=== PATIENT | female | born 1985 | race Caucasian/White ===

== ENCOUNTER 2019-11-27 13:39 | Emergency (ER) | payer SELFPAY ==
[2019-11-27 13:49] VITALS: BP 144/100; PULSE 101; RESP 18; TEMP 36.8; O2SAT 99; BMI 29.2
--- NOTE | 2019-11-27 14:03 | ED_ITS ---
HPI - Female Genitourinary General: Chief complaint: Urogenital-Female Stated complaint: THINKS UTI OR KIDNEY INFECTION Time Seen by Provider: 11/27/19 13:43 Source: patient Mode of arrival: ambulatory Limitations: no limitations History of Present Illness: MD elicited complaint: UTI Severity scale (1-10): 4 Quality of pain: cramping Consistency: intermittent Review of Systems General: Reports: 10 or more systems reviewed and unremarkable except in HPI and below Const: Denies: fever : Reports: flank pain and painful urination PFS ED PFSH: Social History Smoking and tobacco status: current every day smoker Physical Exam Const: COMMON NORMALS: no apparent distress, oriented x3, no limitations and alert GENERAL APPEARANCE: cooperative and comfortable ORIENTATI ON/CONSCIOUSNESS: Yes awake, Yes oriented to person, Yes oriented to place and Yes oriented to time HENMT: COMMON NORMALS: normocephalic, head/scalp atraumatic, external ears normal, EAC's normal, TM's normal bilaterally and external nose normal HEAD & SCALP: normal to inspection, normocephalic and atraumatic FACE & SINUS: normal facial exam, sinuses nontender and face symmetric NOSE: external nose normal, nares normal and no nasal discharge EXTERNAL EAR: Yes external ears normal EXTERNAL AUDITORY CANAL: EAC's normal TYMPANIC MEMBRANE: TM's normal bilaterally MOUTH: oral and palatal mucosa normal, lip normal and tongue normal THROAT: posterior oropharynx normal, tonsils normal and uvula midline Eye: COMMON NORMALS: PERRL, EOMs intact bilaterally and conjunctivae normal GENERAL EYE: normal appearance of both eyes and normal light reflex EYELID: eyelids normal CONJUNCTIVA: Yes conjunctivae normal PUPIL: Yes PERRL EOM: Yes EOM abnormal DIRECT OPHTHALMOSCOPY: Yes normal light reflex Neck/C-Spine: COMMON NORMALS: full ROM, no lymphadenopathy, supple, no meningeal signs, no JVD and thyroid normal GENERAL: Yes normal visual inspection THYROID: thyroid normal CERVICAL SPINE: Yes cervical ROM normal and Yes normal cervical lordosis Lymph: LYMPHATIC: no lymphadenopathy noted Chest: COMMONS NORMALS: inspection of chest normal and palpation of chest normal Resp: COMMON NORMALS: normal respiratory effort, no retractions and clear to auscultation bilaterally AUSCULTATION: clear to auscultation bilaterally Cardio: COMMON NORMALS: no JVD, regular rate, regular rhythm, S1 normal heart sound, S2 normal heart sound, no gallops, no clicks, no murmurs, no rub and peripheral pulses 2+ throughout RATE: regular rate RHYTHM: regular rhythm HEART SOUNDS: S1 normal and S2 normal PERIPHERAL PULSES: pulses 2+ throughout GI: COMMON NORMALS: normal to inspection, nondistended, normoactive bowel sounds, soft to palpation, non-tender and no masses PALPATION: Yes soft : COMMON NORMALS: Yes no CVA tenderness and Yes external appearance normal BLADDER/KIDNEY EXAM: Yes no CVA tenderness Back/Pelvis: COMMON NORMALS: no CVA tenderness, thoracic and lumbar spine normal to inspection, no thoracic nor lumbar tenderness and thoraco-lumbar ROM normal Extremity: COMMON NORMALS: normal to inspection, full ROM, normal capillary refill, no joint enlargement, no clubbing, cyanosis or edema, no calf tenderness and no pedal edema GENERAL: Yes normal exam except as noted Neuro: COMMON NORMALS: oriented x3, moves all extremities, no focal motor deficits, no sensory deficits noted and gait normal SENSORIUM/ORIENTATION: Yes alert, Yes oriented to person, Yes oriented to place and Yes oriented to time MENINGEAL SIGNS: Yes no meningeal signs Psych: COMMON NORMALS: mental status grossly normal, thought process normal, cooperative, affect normal, speech normal and activity/motor behavior normal SPEECH: Yes normal speech THOUGHT PROCESS: normal thought process Skin: COMMON NORMALS: no rashes or lesions noted, no wounds and skin turgor normal GENERAL SKIN EXAM: no rashes or lesions noted and turgor normal Course ED course: Pt presents with complaints of UTI symptoms x 1 week. Recently had a traumatic event and was unable to make it to the doctor promptly. Denies fever or NV. Does not appear toxic. UA ordered. Reevaluation(s): Reevaluation #1: UA negative for nitrates and leukocytes; no culture was indicated. Due to pt pain but stable appearance will proceed with DC but instruct pt to follow up with worsening symptoms. Time: 14:46 Vital Signs: Vital signs: Vital Signs Temperature 98.3 F 11/27/19 13:49 Pulse Rate 99 11/27/19 14:06 Respiratory Rate 16 11/27/19 14:06 Blood Pressure 141/90 11/27/19 14:06 Pulse Oximetry 99 11/27/19 14:06 MDM - Female Lab Data: Attestation: I reviewed the patient's lab results. Labs: Lab Results 11/27/19 Range/Units 14:10 Urine Color Yellow (Yellow) Urine Appearance Clear (CLEAR) Urine pH 5 (5-7) Ur Specific Gravit y 1.015 (1.005-1.030) Urine Protein Neg (Negative) Urine Glucose (UA) Norm (Normal) Urine Ketones Negative (Negative) Urine Blood Neg (Negative) Urine Nitrate Negative (Negative) Urine Bilirubin Neg (NEGATIVE) Urine Urobilinogen Norm (Negative) mg/dL Ur Leukocyte Yolis ase Negative (Negative) Discharge Plan Discharge Patient Disposition: Home, Self-Care Clinical Impression: Lumbar back pain Condition: Stable Prescriptions: No Action Bactrim DS 800-160 mg Tablet 1 tab PO DAILY RF: 0 Discharge Diet: Advance as tolerated Discharge Activity: Resume usual activity Activity Restrictions/Additional Instructions: Increase water intake; follow up with PCP or return for worsening in symptoms. Coding Level of Care Code ED Labor Utilization Superintendent for Sammy Fwd Exam Comprehensive
[2019-11-27 14:06] VITALS: BP 141/90; PULSE 99; RESP 16; O2SAT 99
[2019-11-27 14:17] LABS: Add Urine Microscopic? NO
[2019-11-27 14:30] LABS: Urine Color Yellow (Yellow)
[2019-11-27 14:31] LABS: Bilirubin Urine Neg (NEGATIVE); Blood Urine Neg (Negative); Glucose Urine UA Norm (Normal); Ketones Urine Negative (Negative); Leukocyte Esterase Urine Negative (Negative); Nitrate Urine Negative (Negative); Protein Urine Neg (Negative); Specific Gravity, Urine 1.015 (1.005-1.030); Urine Appearance Clear (CLEAR); Urobilinogen Urine Norm (Negative); pH Urine 5 (5-7)
[2019-11-27] MEDS: ketorolac 30 mg/mL INJ IM (15:00)
[2019-11-27] MEDS: orphenadrine 30 mg/mL Inj 2 mL 60 MG IM (15:00)
[2019-11-27 15:04] VITALS: BP 118/74; PULSE 86; RESP 16; O2SAT 97
--- NOTE | 2019-11-27 15:14 | W.ED.FEMALGU ---
HPI - Female Genitourinary General: Chief complaint: Urogenital-Female Stated complaint: THINKS UTI OR KIDNEY INFECTION Time Seen by Provider: 11/27/19 13:43 Source: patient Mode of arrival: ambulatory Limitations: no limitations Review of Systems General: Reports: 10 or more systems reviewed and unremarkable except in HPI and below PFSH ED PFSH: Social History Smoking and tobacco status: current every day smoker Course Vital Signs: Vital signs: Vital Signs Temperature 98.3 F 11/27/19 13:49 Pulse Rate 86 11/27/19 15:04 Respiratory Rate 16 11/27/19 15:04 Blood Pressure 118/74 11/27/19 15:04 Pulse Oximetry 97 11/27/19 15:04 MDM - Female Lab Data: Labs: Lab Results 11/27/19 Range/Units 14:10 Urine Color Yellow (Yellow) Urine Appearance Clear (CLEAR) Urine pH 5 (5-7) Ur Specific Gravit y 1.015 (1.005-1.030) Urine Protein Neg (Negative) Urine Glucose (UA) Norm (Normal) Urine Ketones Negative (Negative) Urine Blood Neg (Negative) Urine Nitrate Negative (Negative) Urine Bilirubin Neg (NEGATIVE) Urine Urobilinogen Norm (Negative) mg/dL Ur Leukocyte Yolis ase Negative (Negative) Discharge Plan Discharge Patient Disposition: Home, Self-Care Clinical Impression: Lumbar back pain Condition: Stable Prescriptions: No Action Bactrim DS 800-160 mg Tablet 1 tab PO DAILY RF: 0 Discharge Diet: Advance as tolerated Discharge Activity: Resume usual activity Activity Restrictions/Additional Instructions: Increase water intake; follow up with PCP or return for worsening in symptoms. Coding Level of Care Code ED Administrative Receptionist for Sammy Moreira
== END 2019-11-27 15:11 | disposition home or self-care (01) ==
LOC: ER 20:25
PROVIDERS: Emergency Provider Nurse Practitioner Family
DX: M54.5 Low back pain (principal); F17.210 Nicotine dependence, cigarettes, uncomplicated
CPT/HCPCS: 12345; 81003; 96372; 99282; 99283; J1885; J2360

== ENCOUNTER 2020-02-29 16:04 | Emergency (ER) | payer MEDICAID, SELFPAY ==
[2020-02-29 16:48] VITALS: BP 145/88; PULSE 96; RESP 16; TEMP 36.7; O2SAT 98; BMI 30.9
--- NOTE | 2020-02-29 17:08 | ED_ITS ---
HPI - URI/Sore Throat General: Chief Complaint: Upper Respiratory Infection Stated Complaint: CONGESTED/VOMITING Time Seen by Provider: 02/29/20 16:58 History of Present Illness: Associated symptoms: Deny abdominal pain, chills, chest pain, diarrhea, fever(s), headache(s), nasal congestion, nausea or vomiting Review of Systems Const: Denies: fever(s), chills or fatigue Eyes: Denies: change in vision or eye discomfort ENMT: Denies: throat pain, odynophagia, nasal discharge or nasal congestion Card: Denies: chest pain, palpitations, edema, swelling of feet/ankles, dyspnea on exertion or orthopnea Resp: Denies: dyspnea, productive cough or non-productive cough GI: Denies: abdominal pain, nausea, vomiting, diarrhea, constipation or hematochezia : Denies: flank pain, dysuria or hematuria Musc: Denies: neck pain, back pain or extremity swelling Skin/Breast: Denies: rash or new lesions Neuro: Denies: headache(s), numbness in extremities or weakness in extremities PFSH ED PFSH: Social History Smoking and tobacco status: current every day smoker Female Reproductive History: Date of last menstrual period: 02/24/20 Physical Exam Const: COMMON NORMALS: patient oriented x3 HENMT: COMMON NORMALS: normocephalic HEAD & SCALP: normocephalic MOUTH: Normal oral and palatal mucosa present THROAT: posterior oropharynx normal and uvula midline Neck/C-Spine: COMMON NORMALS: supple GENERAL: Yes normal visual inspection Resp: COMMON NORMALS: normal respiratory effort, No retractions, No use of accessory muscles and clear to auscultation bilaterally AUSCULTATION: clear to auscultation bilaterally Cardio: COMMON NORMALS: regular rate, regular rhythm, S1 normal heart sound present, S2 normal heart sound present, No gallops present (Cardio), No clicks present (Cardio), No murmurs present (Cardio) and Peripheral pulses 2+ throughout RATE: regular rate RHYTHM: regular rhythm HEART SOUNDS: S1 normal heart sound present and S2 normal heart sound present PERIPHERAL PULSES: Peripheral pulses 2+ throughout GI: COMMON NORMALS: Normal to inspection, nondistended, normoactive bowel sounds present, Soft to palpation, non-tender and no masses PALPATION: Yes Soft to palpation : COMMON NORMALS: Yes no CVA tenderness BLADDER/KIDNEY EXAM: Yes no CVA tenderness Back/Pelvis: COMMON NORMALS: no CVA tenderness Neuro: COMMON NORMALS: patient oriented x3 and moves all extremities Course Vital Signs: Vital signs: Vital Signs Temperature 98.0 F 02/29/20 16:48 Pulse Rate 96 02/29/20 16:48 Respiratory Rate 16 02/29/20 16:48 Blood Pressure 145/88 02/29/20 16:48 Pulse Oximetry 98 02/29/20 16:48 Discharge Plan Discharge Prescriptions: No Action Bactrim DS 800-160 mg Tablet 1 tab PO DAILY RF: 0 Coding Level of Care Code ED Septic Tank Service Technician for Sammy Moreira
--- NOTE | 2020-02-29 17:13 | XRR_ITS ---
PROCEDURE INFORMATION: Exam: XR Chest, 1 View Exam date and time: 02/29/2020 5:34 PM Age: 34 years old Clinical indication: Cough TECHNIQUE: Imaging protocol: XR of the chest Views: 1 view. COMPARISON: CR Chest 2 views* [id number] 12/05/2018 6:25 PM FINDINGS: Lungs: Unremarkable. No consolidation. Pleural space: Unremarkable. No pleural effusion. No pneumothorax. Heart/Mediastinum: Unremarkable. No cardiomegaly. Bones/joints: Unremarkable. XR/XR chest 1V portable [id number] IMPRESSION: No acute findings.
[2020-02-29 18:09] LABS: Basophils # 0.1 10^3/uL (0.0-0.1); Basophils % 0.8 %; Eosinophils % 8.9 %; Hematocrit 37.9 % (37.0-47.0); Hemoglobin 12.1 g/dL (11.5-15.3); Lymphocytes # 2.4 10^3/uL (0.8-4.8); Lymphocytes % 20.2 %; Mean Corpuscular HGB Conc 31.9 g/dL (30.0-36.0); Mean Corpuscular Hemoglobin 28.7 pg (28.0-34.0); Mean Platelet Volume 10.1 fL (7.4-10.4); Monocytes # 0.4 10^3/uL (0.2-0.9); Monocytes % 3.8 %; Neutrophils # 7.71 10^3/uL (1.8-7.7); Neutrophils % 65.9 %; Nucleated Red Blood Cells % 0 %; Platelet Count 385 10^3/cmm (130-400); Red Blood Count 4.21 10^6/uL (4.1-5.3); Red Cell Distribution Width 14.7 % (12.1-15.1); White Blood Count 11.7 10^3/uL (4.0-10.0)
[2020-02-29 18:19] VITALS: RESP 18
[2020-02-29 18:32] LABS: HCG, Serum Qual Negative (Negative)
[2020-02-29 18:35] LABS: Procalcitonin 0.03 ng/mL (0-0.5)
--- NOTE | 2020-02-29 18:47 | W.ED.FEVER ---
HPI - Fever General: Chief Complaint: Fever Stated Complaint: CONGESTED/VOMITING Time Seen by Provider: 02/29/20 16:58 Source: patient Mode of arrival: ambulatory Limitations: no limitations History of Present Illness: HPI Narrative: She and her 2 sons have been having URI symptoms for about 4 days. She is worried that they may have COVID-19. She is therefore here to be evaluated for this. MD elicited complaint: fever Onset (ago): day(s) (4) Context: other(s) with similar symptoms (her 2 sons) Exacerbating factors: nothing Relieving factors: nothing Associated symptoms: Reports cough and sore throat; Deny abdominal pain, flank pain, chills, chest pain, confusion, diarrhea, dysuria, headache(s), myalgias, nasal congestion, nausea, night sweats, rash, rhinorrhea, short of breath, sinus pain, stiffness, vaginal discharge, vomiting or weight loss Treatments prior to arrival fever: none Review of Systems General: Reports: 10 or more systems reviewed and unremarkable except in HPI and below Const: Denies: chills or night sweats Eyes: Denies: change in vision or blurry vision ENMT: Denies: nasal congestion or sinus pain Card: Denies: chest pain Resp: Denies: dyspnea, productive cough or non-productive cough GI: Denies: abdominal pain, nausea, vomiting or diarrhea : Denies: flank pain, dysuria or vaginal discharge Musc: Denies: neck pain, back pain or extremity swelling Skin/Breast: Denies: rash, pruritus or erythema Neuro: Denies: headache(s) or confusion Endo: Denies: polyuria, polydipsia or tired all the time COUNT INCLUDES THE [facility] ED PFSH: Social History Smoking and tobacco status: current every day smoker Female Reproductive History: Date of last menstrual period: 02/24/20 Physical Exam Const: COMMON NORMALS: no acute distress, average body habitus, patient oriented x3, no limitations, healthy appearing, alert and well nourished HENMT: COMMON NORMALS: normocephalic, atraumatic and moist oral mucous membranes HEAD & SCALP: normocephalic and atraumatic Neck/C-Spine: COMMON NORMALS: no meningeal signs and no JVD Resp: COMMON NORMALS: normal respiratory effort, No retractions, No use of accessory muscles, clear to auscultation bilaterally and percussion normal AUSCULTATION: clear to auscultation bilaterally PERCUSSION: percussion normal Cardio: COMMON NORMALS: no JVD, regular rate, regular rhythm, S1 normal heart sound present, S2 normal heart sound present, No gallops present (Cardio), No clicks present (Cardio), No murmurs present (Cardio), No rub (Cardio) and Peripheral pulses 2+ throughout RATE: regular rate RHYTHM: regular rhythm HEART SOUNDS: S1 normal heart sound present and S2 normal heart sound present PERIPHERAL PULSES: Peripheral pulses 2+ throughout GI: COMMON NORMALS: Normal to inspection, nondistended, normoactive bowel sounds present, Soft to palpation, non-tender, No hepatosplenomegaly present, no masses and no bruits PALPATION: Yes Soft to palpation and Yes No hepatosplenomegaly present Extremity: COMMON NORMALS: normal to inspection, full ROM, capillary refill normal, no calf tenderness and no pedal edema Neuro: COMMON NORMALS: patient oriented x3 SENSORIUM/ORIENTATION: Yes alert MENINGEAL SIGNS: Yes no meningeal signs Skin: COMMON NORMALS: no rashes or lesions noted, no wounds, turgor normal, no jaundice, no petechiae and no mottling GENERAL SKIN EXAM: no rashes or lesions noted and turgor normal Course ED course: 54-year-old female with URI symptoms who presents for evaluation. She also wants to be tested for COVID-19. The patient was very tearful today as today was her father's . While she was in the emergency department she got a call that her mother has been flown to another hospital with chest pain. Because of these she wanted to leave to be with her mother and she signed out AGAINST MEDICAL ADVICE. Vital Signs: Vital signs: Vital Signs Temperature 98.0 F 02/29/20 16:48 Pulse Rate 96 02/29/20 16:48 Respiratory Rate 18 02/29/20 18:19 Blood Pressure 145/88 02/29/20 16:48 Pulse Oximetry 98 02/29/20 16:48 MDM - Fever MDM Narrative: Medical decision making narrative: Patient with URI symptoms, wants to be tested for COVID 19. She left AGAINST MEDICAL ADVICE before her results came out. Lab Data: Labs: Lab Results 02/29/20 02/29/20 02/29/20 Range/Units 17:46 17:46 17:46 WBC 11.7 H (4.0-10.0) 10^3/ uL RBC 4.21 (4.1-5.3) 10^6/u L Hgb 12.1 (11.5-15.3) g/dL Hct 37.9 (37.0-47.0) % MCV 90.0 (81-99) fL MCH 28.7 (28.0-34.0) pg MCHC 31.9 (30.0-36.0) g/dL RDW 14.7 (12.1-15.1) % Plt Count 385 (130-400) 10^3/c mm MPV 10.1 (7.4-10.4) fL Neut % (Auto) 65.9 % Lymph % (Auto) 20.2 % [place] % (Auto) 3.8 % Eos % (Auto) 8.9 % Baso % (Auto) 0.8 % Neut # (Auto) 7.71 H (1.8-7.7) 10^3/u L Lymph # (Auto) 2.4 (0.8-4.8) 10^3/u L [place] # (Auto) 0.4 (0.2-0.9) 10^3/u L Eos # (Auto) 1.0 H (0.0-0.8) 10^3/u L Baso # (Auto) 0.1 (0.0-0.1) 10^3/u L Nucleated RBC % (a uto) 0 % Nucleated RBCs # 0.0 /100WBC Procalcitonin 0.03 (0-0.5) ng/mL HCG, Qual Negative (Negative) Discharge Plan Discharge Patient Disposition: Left Against Medical Advice Clinical Impression: Upper respiratory tract infection Prescriptions: No Action No Known Home Medications RF: 0 Referrals: Kayleigh Maldonado MD [Primary Care Provider] - Interventions: ED Discharge Assessment Last Done: 02/29/20 18:38 ED Charges Last Done: 02/29/20 18:38 Discharge Date/Time: 02/29/20 18:39 Coding Level of Care Code ED Cadastral Engineer for Sammy Moreira
[2020-02-29 18:48] LABS: Alanine Aminotransferase 17 U/L (0-33); Albumin Level 4.2 g/dL (3.5-5.2); Alkaline Phosphatase 100 IU/L (35-105); Anion Gap 13.1 (5-19); Aspartate Amino Transferase 16 U/L (0-32); Blood Urea Nitrogen 9 mg/dL (6-20); C Reactive Protein 0.3 mg/L (0.0-4.9); Calcium 8.3 mg/dL (8.5-10.5); Carbon Dioxide 26 mmol/L (22-29); Chloride 103 mmol/L (98-107); Globulin 3.3 g/dL (1.3-4.6); Glomerular Filtration Rate 81.6 mL/min (90-130); Glucose 130 mg/dL (65-115); Osmolality Calculated 284 mOsm/kg (285-295); Potassium 4.1 mmol/L (3.5-5.1); Sodium 138 mmol/L (136-145); Total Bilirubin 0.2 mg/dL (0.15-1.2); Total Protein 7.5 g/dL (6.6-8.7)
[2020-03-02 21:49] LABS: Quest SARS-CoV-2 RNA NOT DETECTED (NOT DETECTED)
== END 2020-02-29 18:39 | disposition left against medical advice (07) ==
PROVIDERS: Physician Assistant; Emergency Provider Family Medicine; PCP Family Medicine
DX: J06.9 Acute upper respiratory infection, unspecified (principal); F17.210 Nicotine dependence, cigarettes, uncomplicated
CPT/HCPCS: 12345; 36415; 71045; 80053; 84145; 84703; 85025; 86140; 87635; 99281; 99283

== ENCOUNTER 2022-08-09 18:08 | Emergency (ER) | payer BC, MEDICAID, SELFPAY ==
[2022-08-09 18:13] VITALS: BP 195/108; PULSE 106; RESP 16; TEMP 36.6; O2SAT 99; BMI 28.0
[2022-08-09 20:03] LABS: Basophils # 0.1 10^3/uL (0.0-0.1); Basophils % 0.5 %; Eosinophils # 0.2 10^3/uL (0.0-0.8); Eosinophils % 1.8 %; Hematocrit 34.7 % (37.0-47.0); Hemoglobin 10.9 g/dL (11.5-15.3); Lymphocytes # 4.1 10^3/uL (0.8-4.8); Lymphocytes % 35.5 %; Mean Corpuscular HGB Conc 31.4 g/dL (30.0-36.0); Mean Corpuscular Volume 86.1 fl (81-99); Mean Platelet Volume 9.6 fL (7.4-10.4); Monocytes # 0.6 10^3/uL (0.2-0.9); Neutrophils # 6.56 10^3/uL (1.8-7.7); Neutrophils % 56.9 %; Nucleated Red Blood Cells % 0 %; Platelet Count 348 10^3/cmm (130-400); Red Blood Count 4.03 10^6/uL (4.1-5.3); Red Cell Distribution Width 14.7 % (12.1-15.1); White Blood Count 11.5 10^3/uL (4.0-10.0)
[2022-08-09 20:32] LABS: Alanine Aminotransferase 8 U/L (0-33); Albumin Level 3.9 g/dL (3.5-5.2); Alkaline Phosphatase 97 U/L (35-105); Anion Gap 11.1 (5-19); Aspartate Amino Transferase 11 U/L (0-32); Blood Urea Nitrogen 9 mg/dL (6-20); Calcium 9.1 mg/dL (8.5-10.5); Carbon Dioxide 26 mmol/L (22-29); Chloride 103 mmol/L (98-107); Globulin 2.9 g/dL (1.3-4.6); Glomerular Filtration Rate 94.2 mL/min (90-130); Glucose 137 mg/dL (65-115); Lipase 26 U/L (13-60); Osmolality Calculated 285 mOsm/kg (285-295); Potassium 3.1 mmol/L (3.5-5.1); Sodium 137 mmol/L (136-145); Total Bilirubin 0.2 mg/dL (0.15-1.2); Total Protein 6.8 g/dL (6.6-8.7)
[2022-08-09 20:34] LABS: HCG, Serum Qual Negative (Negative)
--- NOTE | 2022-08-09 21:28 | ED_ITS ---
HPI - General Adult General: Chief complaint: General Medical Stated complaint: N/V/DIZZY Time Seen by Provider: 08/09/22 21:29 History of Present Illness: This 36-year-old female presents to the ER stating that she removed a foreign body in her left ear earlier today. The foreign body has been there for over a year. When she removed it, she felt the left side of her body feel hot and her heart fluttering. Then she felt fluid in her spine and she felt very flushed. She proceeded to state that the foreign body in question, has been moving in her left ear. She brought out a small transparent pouch in which there was a small brown item which she describes as theforeign body. Now, patient states that there are foreign bodies embedded in the pinna of the left ear. It could be the head of a tick or Ebola virus . She believes that the fluid in her spine is now travelin g all over her body, making her whole body swell. Associated symptoms: Deny chest pain or headache(s) Review of Systems Const: Denies: chills, body aches or change in appetite Eyes: Denies: change in vision or eye discharge ENMT: Reports: other (Foreign body in left ear); Denies: throat pain, dental pain or nasal discharge Card: Denies: chest pain or lightheadedness : Denies: dysuria Musc: Reports: other (Body swelling due to foreign body in the left ear); Denies: neck pain or back pain Neuro: Reports: other ( Fluid in the spine .); Denies: headache(s) or weakness in extremities Psych: Denies: depression John/Lymph: Denies: easy bruising All/Imm: Denies: urticaria, tongue swelling or facial swelling PFS ED PFSH: Social History Smoking and tobacco status: current every day smoker Female Reproductive History: Date of last menstrual period: 02/24/20 Physical Exam Const: COMMON NORMALS: no acute distress, patient oriented x3, no limitations and alert OTHER: Emotional and tearful. HENMT: COMMON NORMALS: normocephalic HEAD & SCALP: normocephalic Eye: COMMON NORMALS: EOMs intact bilaterally Neck/C-Spine: COMMON NORMALS: full ROM and supple Chest: COMMONS NORMALS: normal inspection of the chest Resp: COMMON NORMALS: normal respiratory effort, No retractions, No use of accessory muscles and clear to auscultation bilaterally AUSCULTATION: clear to auscultation bilaterally Cardio: COMMON NORMALS: regular rate, regular rhythm and No murmurs present (Cardio) RATE: regular rate RHYTHM: regular rhythm GI: COMMON NORMALS: Normal to inspection, nondistended, normoactive bowel sounds present and non-tender : COMMON NORMALS: Yes no CVA tenderness BLADDER/KIDNEY EXAM: Yes no CVA tenderness Back/Pelvis: COMMON NORMALS: no CVA tenderness and no thoracic nor lumbar tenderness Extremity: GENERAL: Yes normal exam except as noted Neuro: COMMON NORMALS: patient oriented x3 and no focal motor deficits SENSORIUM/ORIENTATION: Yes alert Psych: COMMON NORMALS: mental status grossly normal and cooperative Course Vital Signs: Vital signs: Vital Signs Temperature 97.8 F 08/09/22 18:13 Pulse Rate 106 H 08/09/22 18:13 Respiratory Rate 16 08/09/22 18:13 Blood Pressure 195/108 08/09/22 18:13 Pulse Oximetry 99 08/09/22 18:13 [facility] - General Adult Medical Decision Making Medical decision making: History as above. Clinical exam is unremarkable with no foreign body inside or outside both ears. I made patient aware that there is no emergent situation with her ears that requires emergent intervention. If her symptoms persist, she needs to follow-up with an ENT surgeon. Patient became tearful, wanting to be transferred to a different hospital to see an infectious disease specialist. I reassured patient that emergent transfer is not warranted tonight. She can follow-up with her primary care physician who can set her up to see any subspecialist she chooses. She may return with new or worsening conditions. Lab Data 08/09/22 19:59 08/09/22 19:59 Laboratory Results WBC 11.5 10^3/uL (4.0-10.0) H 08/09/22 19:59 RBC 4.03 10^6/uL (4.1-5.3) L 08/09/22 19:59 Hgb 10.9 g/dL (11.5-15.3) L 08/09/22 19:59 Hct 34.7 % (37.0-47.0) L 08/09/22 19:59 MCV 86.1 fl (81-99) 08/09/22 19:59 MCH 27.0 pg (28.0-34.0) L 08/09/22 19:59 MCHC 31.4 g/dL (30.0-36.0) 08/09/22 19:59 RDW 14.7 % (12.1-15.1) 08/09/22 19:59 Plt Count 348 10^3/cmm (130-400) 08/09/22 19:59 MPV 9.6 fL (7.4-10.4) 08/09/22 19:59 Neut % (Auto) 56.9 % 08/09/22 19:59 Lymph % (Auto) 35.5 % 08/09/22 19:59 [place] % (Auto) 5.0 % 08/09/22 19:59 Eos % (Auto) 1.8 % 08/09/22 19:59 Baso % (Auto) 0.5 % 08/09/22 19:59 Neut # (Auto) 6.56 10^3/uL (1.8-7.7) 08/09/22 19:59 Lymph # (Auto) 4.1 10^3/uL (0.8-4.8) 08/09/22 19:59 [place] # (Auto) 0.6 10^3/uL (0.2-0.9) 08/09/22 19:59 Eos # (Auto) 0.2 10^3/uL (0.0-0.8) 08/09/22 19:59 Baso # (Auto) 0.1 10^3/uL (0.0-0.1) 08/09/22 19:59 Nucleated RBC % (auto) 0 % 08/09/22 19:59 Nucleated RBCs # 0.0 /100WBC 08/09/22 19:59 Sodium 137 mmol/L (136-145) 08/09/22 19:59 Potassium 3.1 mmol/L (3.5-5.1) L 08/09/22 19:59 Chloride 103 mmol/L (98-107) 08/09/22 19:59 Carbon Dioxide 26 mmol/L (22-29) 08/09/22 19:59 Anion Gap 11.1 (5-19) 08/09/22 19:59 BUN 9 mg/dL (6-20) 08/09/22 19:59 Creatinine 0.7 mg/dL (0.5-0.9) 08/09/22 19:59 GFR Calculation 94.2 mL/min (90-130) 08/09/22 19:59 Glucose 137 mg/dL (65-115) H 08/09/22 19:59 POC Glucose 112 mg/dL (70-110) H 08/09/22 21:43 Calculated Osmolality 285 mOsm/kg (285-295) 08/09/22 19:59 Calcium 9.1 mg/dL (8.5-10.5) 08/09/22 19:59 Total Bilirubin 0.2 mg/dL (0.15-1.2) 08/09/22 19:59 AST 11 U/L (0-32) 08/09/22 19:59 ALT 8 U/L (0-33) 08/09/22 19:59 Alkaline Phosphatase 97 U/L (35-105) 08/09/22 19:59 Total Protein 6.8 g/dL (6.6-8.7) 08/09/22 19:59 Albumin 3.9 g/dL (3.5-5.2) 08/09/22 19:59 Globulin 2.9 g/dL (1.3-4.6) 08/09/22 19:59 Lipase 26 U/L (13-60) 08/09/22 19:59 HCG, Qual Negative (Negative) 08/09/22 19:59 Discharge Plan Discharge Patient Disposition: Home Clinical Impression: Hypokalemia, Foreign body (FB) in soft tissue Condition: Stable Prescriptions: New Klor-Con M20 20 mEq tablet,ER particles/crystals 20 meq PO BID Qty: 10 0RF No Action doxycycline hyclate 100 mg capsule 100 mg PO BID Qty: 20 0RF naltrexone 50 mg tablet 50 mg PO DAILY Qty: 14 0RF amoxicillin 875 mg tablet 875 mg PO BID Qty: 20 0RF neomycin-polymyxin B-dexameth [Maxitrol] 3.5mg/mL-10,000 unit/mL-0.1 % drops,suspension 2 drp ophthalmic (eye) Q2H Qty: 5 0RF Rx Instructions: LEFT EAR Discharge Orders: Discharge ED (Routine); Ordered 08/09/22 Ordered By: Arthur Bethea Discharge Diet: Usual diet Discharge Activity: Resume usual activity Patient Instructions: Opioid Safety, Pain Management Activity Restrictions/Additional Instructions: Take potassium pills as prescribed. Follow-up with your primary care physician in 3 to 5 days to recheck your potassium level. If your left ear keeps bothering you, you need to follow-up with an ENT specialist. At this time, I do not see any emergent condition with your left ear. Return with new or worsening symptoms. Coding Level of Care Code ED Assembler Hydraulic Backhoe for Sammy Moreira
[2022-08-09 21:59] LABS: Glucose Point of Care 112 mg/dL (70-110)
[2022-08-09] MEDS: potassium chloride ER 20 mEq Tablet 40 MEQ PO (22:09)
== END 2022-08-09 22:16 | disposition home or self-care (01) ==
PROVIDERS: Emergency Medicine; Emergency Provider Family Medicine
DX: E87.6 Hypokalemia (principal); M79.5 Residual foreign body in soft tissue; F17.210 Nicotine dependence, cigarettes, uncomplicated
CPT/HCPCS: 36415; 36416; 80053; 82962; 83690; 84703; 85025; 99283